=== PATIENT | male | born 1965 | race African-American/Black ===

== ENCOUNTER 2017-10-01 08:59 | Emergency (ER) | payer SELFPAY ==
[~2017-10-01] VITALS: Ht 175.3 cm; Wt 80.0 kg
[~2017-10-01 08:59] MED LIST: HYDR12.56 PO; LOSA50TA PO
[2017-10-01 09:00] VITALS: BP 161/89; PULSE 80; RESP 14; TEMP 96.7; O2SAT 100
[2017-10-01] MEDS ORDERED: LOSA50TA PO ×2 (09:29→09:34)
[2017-10-01] MEDS ORDERED: HYDR12.57 PO (09:29)
[2017-10-01] MEDS ORDERED: HYDR12.56 PO (09:34)
--- NOTE | 2017-10-01 09:38 | PD ---
HPI Chief Complaint: Medication Refill Request Time Seen by Provider: 09:30 Travel History International Travel<30 days: No Contact w/Intl Traveler<30days: No History of Present Illness HPI This is a 52-year-old male history of hypertension who presents requesting medication refill. The patient reports that 2 weeks ago he ran out of his losartan 50 mg once a day and hydrochlorothiazide 12.5 mg once a day. He currently does not have a primary care physicianhe use to come to the [facility] primary [facility] clinic however it recently closed and he has been lost to follow- up. Review of systems he does report that he has had an intermittent mild frontal headache over the past few days but not currently. Denies nausea or vomiting, chest pain, shortness of breath. He has no other complaints at this time. [facility] Past Medical History Headaches: Yes Hypertension: Yes Social History Alcohol Use: No Tobacco Use: Yes Substance Use: No Allergies-Medications (Allergen,Severity, Reaction): Coded Allergies: No Known Allergies (Unverified , 04/12/16) Reported Meds & Prescriptions Reported Meds & Active Scripts Active Reported Hydrochlorothiazide 12.5 Mg Cap 12.5 Mg PO DAILY Losartan (Losartan Potassium) 50 Mg Tab 50 Mg PO DAILY Review of Systems Except as stated in HPI: all other systems reviewed are Neg Physical Exam Narrative GENERAL: Well-developed well-nourished male in no acute distress SKIN: Warm and dry. HEAD: Atraumatic. Normocephalic. EYES: Pupils equal and round. No scleral icterus. No injection or drainage. ENT: No nasal bleeding or discharge. Mucous membranes pink and moist. NECK: Trachea midline. No JVD. CARDIOVASCULAR: Regular rate and rhythm. No murmur appreciated. RESPIRATORY: No accessory muscle use. Clear to auscultation. Breath sounds equal bilaterally. GASTROINTESTINAL: Abdomen soft, non-tender, nondistended. Hepatic and splenic margins not palpable. MUSCULOSKELETAL: No obvious deformities. No clubbing. No cyanosis. No edema. NEUROLOGICAL: Awake and alert. No obvious cranial nerve deficits. Motor grossly within normal limits. Normal speech. Normal finger to nose, no ataxic gait. Data Data Last Documented VS Vital Signs Date Time Temp Pulse Resp B/P (MAP) Pulse Ox O2 Delivery O2 Flow Rate FiO2 10/01/17 09:00 96.7 80 14 161/89 (113) 100 MDM Medical Decision Making Medical Screen Exam Complete: Yes Emergency Medical Condition: Yes Medical Record Reviewed: Yes Differential Diagnosis Medication refill, essential hypertension, hypertensive urgency Narrative Course The patient will be given a refill of his antihypertensive medication. He understands that it is essential that he follow-up with a primary care physician for continuing management of this chronic medical problem. He is stable for discharge. Diagnosis Primary Impression: Medication refill Referrals: [facility] Additional Instructions: Follow-up with a primary care physician for continuing medical management. Return for any emergent medical conditions. Med/Other Pt SpecificInfo: Prescription(s) given Scripts Hydrochlorothiazide (Hydrochlorothiazide) 12.5 Mg Tab 12.5 MG PO DAILY, #60 TAB 0 Refills Prov: Jessica Campbell MD 10/01/17 Losartan (Losartan) 50 Mg Tab 50 MG PO DAILY for Blood Pressure Management, #60 TAB 0 Refills Prov: Jessica Campbell MD 10/01/17 Disposition: 01 DISCHARGE HOME Condition: Stable Thanh Guzman Oct 01, 2017 09:38
== END 2017-10-01 09:44 | disposition home or self-care (01) ==
LOC: NEPK 08:59
DX: Z76.0 Encounter for issue of repeat prescription (principal); I10 Essential (primary) hypertension; Z79.899 Other long term (current) drug therapy; Z72.0 Tobacco use
CPT/HCPCS: 99281

== ENCOUNTER 2017-10-15 08:49 | Emergency (ER) | payer SELFPAY ==
[~2017-10-15] VITALS: Ht 175.3 cm; Wt 79.5 kg
[~2017-10-15 08:49] MED LIST changes: +HYDR12.57 PO
[2017-10-15 08:50] VITALS: BP 181/104; PULSE 68; RESP 16; TEMP 97.2; O2SAT 99
[2017-10-15] MEDS ORDERED: LOSA50TA PO (09:18)
[2017-10-15] MEDS ORDERED: HYDR12.57 PO (09:18)
--- NOTE | 2017-10-15 09:21 | PD ---
HPI Chief Complaint: Medication Refill Request Time Seen by Provider: 08:57 Travel History International Travel<30 days: No Contact w/Intl Traveler<30days: No Traveled to known affect area: No History of Present Illness HPI patient is here for bp medication refill and would like some referral guidance because he is new to area. patient states that he just noticed that he has elevated bp but denies any blurred vision, aranda/cp/n/v/rash at this point. no alleviating/aggravating factors PFSH Past Medical History Headaches: Yes Hypertension: Yes Social History Alcohol Use: No Tobacco Use: Yes Substance Use: No Allergies-Medications (Allergen,Severity, Reaction): Coded Allergies: No Known Allergies (Unverified Adverse Reaction, Unknown, 10/15/17) Reported Meds & Prescriptions Reported Meds & Active Scripts Active Hydrochlorothiazide 12.5 Mg Cap 12.5 Mg PO DAILY Losartan (Losartan Potassium) 50 Mg Tab 50 Mg PO DAILY Hydrochlorothiazide 12.5 Mg Tab 12.5 Mg PO DAILY Losartan (Losartan Potassium) 50 Mg Tab 50 Mg PO DAILY Reported Hydrochlorothiazide 12.5 Mg Cap 12.5 Mg PO DAILY Losartan (Losartan Potassium) 50 Mg Tab 50 Mg PO DAILY Review of Systems Except as stated in HPI: all other systems reviewed are Neg General / Constitutional: No: Fever Eyes: No: Visual changes HENT: No: Headaches Cardiovascular: No: Chest Pain or Discomfort Respiratory: No: Shortness of Breath Gastrointestinal: No: Abdominal Pain Genitourinary: No: Dysuria Musculoskeletal: No: Pain Skin: No Rash Neurologic: No: Weakness Psychiatric: No: Depression Endocrine: No: Polydipsia Hematologic/Lymphatic: No: Easy Bruising Physical Exam Narrative GENERAL: SKIN: Warm and dry. HEAD: Atraumatic. Normocephalic. EYES: Pupils equal and round. No scleral icterus. No injection or drainage. ENT: No nasal bleeding or discharge. Mucous membranes pink and moist. NECK: Trachea midline. No JVD. CARDIOVASCULAR: Regular rate and rhythm. RESPIRATORY: No accessory muscle use. Clear to auscultation. Breath sounds equal bilaterally. GASTROINTESTINAL: Abdomen soft, non-tender, nondistended. MUSCULOSKELETAL: Extremities without clubbing, cyanosis, or edema. No obvious deformities. NEUROLOGICAL: Awake and alert. No obvious cranial nerve deficits. Motor grossly within normal limits. Five out of 5 muscle strength in the arms and legs. Normal speech. PSYCHIATRIC: Appropriate mood and affect; insight and judgment normal. Data Data Last Documented VS Vital Signs Date Time Temp Pulse Resp B/P (MAP) Pulse Ox O2 Delivery O2 Flow Rate FiO2 10/15/17 09:48 62 20 176/95 (122) 97 Room Air 10/15/17 08:50 97.2 Orders Orders Clonidine (Catapres) (10/15/17 09:30) Ed Discharge Order (10/15/17 09:23) MDM Medical Decision Making Medical Screen Exam Complete: Yes Emergency Medical Condition: Yes Medical Record Reviewed: Yes Differential Diagnosis n/a Narrative Course patient is here for refill medications, losartan and hctz...noted to have htn without symptoms, given clonidine, htn is due to noncompliance Diagnosis Primary Impression: Medication refill Referrals: [facility] Patient Instructions: General Instructions, Medication Refill, ED Scripts Hydrochlorothiazide (Hydrochlorothiazide) 12.5 Mg Cap 12.5 MG PO DAILY, #30 CAP 2 Refills Prov: Matthew Gamze MD 10/15/17 Losartan (Losartan) 50 Mg Tab 50 MG PO DAILY for Blood Pressure Management, #30 TAB 2 Refills Prov: Matthew Gamez MD 10/15/17 Disposition: 01 DISCHARGE HOME Condition: Stable Matthew Gamez MD Oct 15, 2017 09:21
[2017-10-15] MEDS ORDERED: cloNIDine HCL 0.1 MG TAB PO ONE (09:30)
[2017-10-15 09:48] VITALS: BP 176/95; PULSE 62; RESP 20; O2SAT 97
== END 2017-10-15 10:05 | disposition home or self-care (01) ==
LOC: NEPD 08:49
DX: I10 Essential (primary) hypertension (principal)
CPT/HCPCS: 99281